=== PATIENT | male | born 1980 | race Caucasian/White ===

== ENCOUNTER 2017-11-27 14:31 | Emergency (ER) | payer OTHER ==
[~2017-11-27] VITALS: Ht 160 cm; Wt 75.0 kg
[2017-11-27 15:27] VITALS: BP 140/77
[2017-11-27] MEDS ORDERED: IBUPROFEN 600MG TABLET PO ONE (15:30)
== END 2017-11-27 16:43 | disposition left against medical advice (07) ==
LOC: ER 15:26
DX: S60.011A Contusion of right thumb without damage to nail, initial encounter (principal); W20.8XXA Other cause of strike by thrown, projected or falling object, initial encounter; Y93.9 Activity, unspecified; Y92.69 Other specified industrial and construction area as the place of occurrence of the external cause
CPT/HCPCS: 99282